=== PATIENT | female | born 1965 | race African-American/Black ===

== ENCOUNTER 2017-04-01 20:25 | Emergency (ER) | payer MEDICARE, OTHER ==
[~2017-04-01] VITALS: Ht 167.6 cm; Wt 106.6 kg
[~2017-04-01 20:25] MED LIST: CYCL10TA2 PO; IBUP-1007 PO; INSU100C4 SQ; INSU100V8 SQ; LEVO50TA PO; LISI1TAB3 PO; METF-620 PO
[2017-04-01 21:42] LABS: BASO # 0.1 x10^3/uL (0.0-0.2); BASO % 1 % (0-3); EOS % 2 % (0-3); LYMPH # 3.2 x10^3/uL (1.0-4.8); LYMPH % 41 % (24-48); MEAN CORPUSCULAR HEMOGLOBIN 29 pg (25-35); MEAN CORPUSCULAR HGB CONC 33 g/dL (31-37); MEAN CORPUSCULAR VOLUME 86 fL (79-100); MONO % 6 % (0-9); NEUT % 50 % (31-73); PLATELET COUNT 334 x10^3/uL (140-400); RED BLOOD COUNT 4.53 x10^6/uL (3.50-5.40); RED CELL DISTRIBUTION WIDTH 15.3 % (11.5-14.5); WHITE BLOOD COUNT 7.8 x10^3/uL (4.0-11.0)
[2017-04-01] MEDS ORDERED: ASPIRIN 325 MG TABLET PO ONE (21:45)
[2017-04-01] MEDS: fentaNYL PF VIAL 100 MCG/2 ML VIAL IV PRN ×2 (21:46→23:17)
[2017-04-01 21:51] LABS: INR 0.9 (0.8-1.1); PROTHROMBIN TIME PATIENT 11.8 SEC (11.7-14.0)
[2017-04-01 21:55] LABS: GFR 70.7; POTASSIUM 3.7 mmol/L (3.5-5.1)
[2017-04-01 22:01] LABS: ALBUMIN 3.6 g/dL (3.4-5.0); ALBUMIN/GLOBULIN RATIO 0.9 (1.0-1.7); TOTAL BILIRUBIN 0.4 mg/dL (0.2-1.0); TOTAL PROTEIN 7.6 g/dL (6.4-8.2)
--- NOTE | 2017-04-01 22:01 | RAD ---
Examination: CT head without contrast HISTORY: History of right arm pain, numbness COMPARISON: None available Technique: Axial CT images of the head was performed without contrast. Exposure: One or more of the following individualized dose reduction techniques were utilized for this examination: 1. Automated exposure control 2. Adjustment of the mA and/or kV according to patient size 3. Use of iterative reconstruction technique FINDINGS: There is no evidence of midline shift. There is no acute intracranial bleed or extra-axial fluid collection identified. Pardo-white matter differentiation is maintained. The visualized lateral ventricles, third ventricle, fourth ventricle and appropriate for age. The basal cisterns aren't effaced. Visualized paranasal sinuses, mastoid air cells are clear. IMPRESSION: No acute intracranial findings. Electronically signed by: Remi Moe MD (04/01/2017 9:58 PM)
[2017-04-01 23:18] VITALS: BP 110/79
--- NOTE | 2017-04-02 01:08 | PHYS DOC ---
Past Medical History Past Medical History: Diabetes-Type II, GERD, Hypertension, Hypothyroid Additional Past Medical Histor: CHRONIC BACK PAIN Past Surgical History: Gastric Bypass Alcohol Use: None Drug Use: None Adult General Chief Complaint Chief Complaint: UPPER EXTREMITY PAIN HPI HPI Patient is a 51 year old female who presents with right upp er extremity pain & tingling. She reports onset of symptoms yesterday, worse around 1730 this evening. She states pain is sharp/throbbing from left shoulder radiating to distal extremity & up into her neck. She feels tingling in fingertips. Denies chest pain, shortness of breath, nausea, diaphoresis, extremity weakness. Denies trauma. She is right handed. She denies previous history of similar symptoms. She has history of diabetes & hypertension, denies cardiac history. She has a PCP. Review of Systems Review of Systems Constitutional: Denies fever or chills Eyes: Denies change in visual acuity HENT: Denies nasal congestion or sore throat Respiratory: Denies cough or shortness of breath Cardiovascular: Denies chest pain or edema GI: Denies abdominal pain, nausea, vomiting, or diarrhea : Denies dysuria or hematuria Musculoskeletal: Reports upper extremity pain Integument: Denies rash or skin lesions Neurologic: Denies headache, focal weakness or sensory changes Current Medications Current Medications Current Medications Medications (Trade) Dose Ordered Sig/Clare Start Time Stop Time Status Last Admin Dose Admin Aspirin (Chris Aspirin) 325 mg 1X ONCE 04/01/17 21:45 04/01/17 21:46 DC 04/01/17 21:46 325 MG Fentanyl Citrate (Fentanyl 2ml Vial) 50 mcg PRN Q15MIN PRN 04/01/17 21:45 04/02/17 01:10 DC 04/01/17 23:17 50 MCG Allergies Allergies Allergies Coded Allergies Type Severity Reaction Last Updated Verified naproxen Allergy Intermediate "MY DR SAYS I CANT HAVE IT BECAUSE OF GASTRIC BIPASS" 06/03/16 Yes Physical Exam Physical Exam Constitutional: obese, no acute distress, non-toxic appearance. HENT: Normocephalic, atraumatic, bilateral external ears normal, oropharynx moist, nose normal. Eyes: PERRLA, EOMI, conjunctiva normal, no discharge. Neck: supple, no stridor. Cardiovascular: RRR, no murmurs, no edema. Lungs & Thorax: LCTAB, no wheezing, no respiratory distress. Abdomen: soft, nontender, nondistended. Skin: Warm, dry, no erythema, no rash. Back: No tenderness. Extremities: right upper extremity no swelling or deformity, no focal bony tenderness, normal ROM to all joints, radial pulse 2+, radial/median/ulnar nerve sensory & motor function intact. Neurologic: Alert and oriented X 3, CN2-12 grossly intact, symmetric strength to UE & LE, decreased sensation to light touch in RUE otherwise normal sensation to all other extremities, no focal deficits noted. Psychologic: Affect normal, judgement normal, mood normal. Current Patient Data Vital Signs Vital Signs Date Time Temp Pulse Resp B/P (MAP) Pulse Ox O2 Delivery O2 Flow Rate FiO2 04/01/17 23:18 58 18 110/79 (89) 100 Room Air 04/01/17 20:44 98.3 98.3 Lab Values Laboratory Tests Test 04/01/17 21:30 04/01/17 23:39 White Blood Count 7.8 x10^3/uL (4.0-11.0) Red Blood Count 4.53 x10^6/uL (3.50-5.40) Hemoglobin 13.0 g/dL (12.0-15.5) Hematocrit 39.0 % (36.0-47.0) Mean Corpuscular Volume 86 fL (79-100) Mean Corpuscular Hemoglobin 29 pg (25-35) Mean Corpuscular Hemoglobin Concent 33 g/dL (31-37) Red Cell Distribution Width 15.3 % (11.5-14.5) H Platelet Count 334 x10^3/uL (140-400) Neutrophils (%) (Auto) 50 % (31-73) Lymphocytes (%) (Auto) 41 % (24-48) Monocytes (%) (Auto) 6 % (0-9) Eosinophils (%) (Auto) 2 % (0-3) Basophils (%) (Auto) 1 % (0-3) Neutrophils # (Auto) 3.9 x10^3uL (1.8-7.7) Lymphocytes # (Auto) 3.2 x10^3/uL (1.0-4.8) Monocytes # (Auto) 0.5 x10^3/uL (0.0-1.1) Eosinophils # (Auto) 0.2 x10^3/uL (0.0-0.7) Basophils # (Auto) 0.1 x10^3/uL (0.0-0.2) Prothrombin Time 11.8 SEC (11.7-14.0) Prothrombin Time INR 0.9 (0.8-1.1) PTT 32 SEC (24-38) Sodium Level 142 mmol/L (136-145) Potassium Level 3.7 mmol/L (3.5-5.1) Chloride Level 105 mmol/L (98-107) Carbon Dioxide Level 28 mmol/L (21-32) Anion Gap 9 (6-14) Blood Urea Nitrogen 25 mg/dL (7-20) H Creatinine 1.0 mg/dL (0.6-1.0) Estimated GFR (Cockcroft-Gault) 70.7 BUN/Creatinine Ratio 25 (6-20) H Glucose Level 124 mg/dL (70-99) H Calcium Level 9.0 mg/dL (8.5-10.1) Total Bilirubin 0.4 mg/dL (0.2-1.0) Aspartate Amino Transferase (AST) 13 U/L (15-37) L Alanine Aminotransferase (ALT) 16 U/L (14-59) Alkaline Phosphatase 63 U/L (46-116) Troponin I Quantitative < 0.017 ng/mL (0.000-0.055) < 0.017 ng/mL (0.000-0.055) IU-Fwu-O-Type Natriuretic Peptide 27 pg/mL (0-124) Total Protein 7.6 g/dL (6.4-8.2) Albumin 3.6 g/dL (3.4-5.0) Albumin/Globulin Ratio 0.9 (1.0-1.7) L Laboratory Tests 04/01/17 21:30 Laboratory Tests 04/01/17 21:30 EKG EKG Interpreted by me: Normal sinus rhythm rate 67, no acute ST or T wave changes, normal intervals, no ectopy. [] Radiology/Procedures Radiology/Procedures PROCEDURE: CT HEAD WO CONTRAST Examination: CT head without contrast HISTORY: History of right arm pain, numbness COMPARISON: None available Technique: Axial CT images of the head was performed without contrast. Exposure: One or more of the following individualized dose reduction techniques were utilized for this examination: 1. Automated exposure control 2. Adjustment of the mA and/or kV according to patient size 3. Use of iterative reconstruction technique FINDINGS: There is no evidence of midline shift. There is no acute intracranial bleed or extra-axial fluid collection identified. Pardo-white matter differentiation is maintained. The visualized lateral ventricles, third ventricle, fourth ventricle and appropriate for age. The basal cisterns aren't effaced. Visualized paranasal sinuses, mastoid air cells are clear. IMPRESSION: No acute intracranial findings. Electronically signed by: Remi Moe MD (04/01/2017 9:58 PM) DICTATED and SIGNED BY: REMI MOE MD DATE: 04/01/172155 Chest x-ray: Interpreted by me: No cardiomegaly, no infiltrate, no pneumothorax [] Course & Med Decision Making Course & Med Decision Making Pertinent Labs and Imaging studies reviewed. (See chart for details) The patient presents with upper extremity pain. Could represent atypical anginal symptoms - gave aspirin, pain medication, obtained labs, EKG, CXR. No acute abnormalities identified. Less likely to be stroke symptom as she only has sensory changes, but will obtain head CT; this is negative for acute findings. Discussed results with patient, offered admission for further evaluation & treatment of possible cardiovascular etiology of her pain. She states she feels better & wants to go home if possible. Obtained repeat troponin which is also negative. She had a family emergency & wanted to leave right away, so I couldn't provide discharge papers. I did discuss verbally with her in the room. Recommend rest, tylenol/ibuprofen for likely musculoskeletal pain, follow up with primary care physician in 2-3 days. Come back for severe chest pain or shortness of breath, focal neuro deficit, aphasia/ ataxia, any otherwise worsening condition. Discharged home in stable condition. [] Dragon Disclaimer Dragon Disclaimer This electronic medical record was generated, in whole or in part, using a voice recognition dictation system. Departure Departure Impression: Primary Impression: Upper extremity pain Disposition: HOME, SELF-CARE Condition: STABLE Referrals: ARNULFO JUAN MD (PCP) FACUNDO ESCOTO MD Apr 02, 2017 01:08
--- NOTE | 2017-04-02 07:40 | RAD ---
Indication: Right arm numbness. Time of exam 2149 hours. FINDINGS: The heart size is normal. The lungs are clear. No pleural effusion or pneumothorax is identified. The pulmonary vascularity is normal. IMPRESSION: No acute abnormality detected.
--- NOTE | 2017-04-02 07:51 | EKG ---
[facility] [address] [place] [address] Test Date: 2017-04-01 Test Time: 21:26:48 Pat Name: FAWAD SALEEM Department: Room: Gender: F Director [employer]: : 1965 Requested By: FACUNDO ESCOTO Order Number: [id number] Reading MD: Marcus Jewell Measurements Intervals [place] Rate: 67 P: 59 HI: 176 QRS: 11 QRSD: 86 T: 13 QT: 404 QTc: 430 Interpretive Statements SINUS RHYTHM QRS(T) CONTOUR ABNORMALITY CONSIDER ANTEROSEPTAL MYOCARDIAL DAMAGE RI6.01 Unconfirmed report Compared to ECG 06/03/2016 21:59:25 No significant changes Electronically Signed On 04-05-2017 9:49:29 CDT by Marcus Jewell
== END 2017-04-02 00:30 | disposition home or self-care (01) ==
LOC: ER 20:25
DX: M79.601 Pain in right arm (principal); R20.2 Paresthesia of skin; E66.9 Obesity, unspecified; E11.9 Type 2 diabetes mellitus without complications; K21.9 Gastro-esophageal reflux disease without esophagitis; I10 Essential (primary) hypertension; E03.9 Hypothyroidism, unspecified; G89.29 Other chronic pain; Z98.84 Bariatric surgery status; Z88.6 Allergy status to analgesic agent; Z68.37 Body mass index [BMI] 37.0-37.9, adult
CPT/HCPCS: 36415; 70450; 71010; 80053; 83880; 84484; 85027; 85610; 85730; 93005; 96374; 96376; 99285; J3010